=== PATIENT | male | born 1965 | race Caucasian/White ===

== ENCOUNTER → 2016-09-13 | Outpatient (CLI) | payer OTHER ==
[~2016-09-13] VITALS: Ht 172.7 cm; Wt 63.6 kg
[~2016-09-13] MED LIST: ONE DAILY FOR1 EACH PO; ULTRAM50 MG PO; VITAMIN D31000 UNI2 PO
== END | disposition home or self-care (01) ==
LOC: AMB 06:51
PROC: 0DBK8ZX Excision of Ascending Colon, Via Natural or Artificial Opening Endoscopic, Diagnostic (ICD-10-PCS; principal; 2016-09-13)
DX: Z12.11 Encounter for screening for malignant neoplasm of colon (principal); R19.4 Change in bowel habit; K63.5 Polyp of colon; Z80.0 Family history of malignant neoplasm of digestive organs; Z87.891 Personal history of nicotine dependence; Z88.0 Allergy status to penicillin; Z88.5 Allergy status to narcotic agent
CPT/HCPCS: 88305; J2250